=== PATIENT | female | born 1980 | race Caucasian/White ===

== ENCOUNTER 2022-02-23 11:09 | Emergency (ER) | payer BC, SELFPAY ==
--- NOTE | 2022-02-23 11:20 | ED.URI ---
HPI - URI/Sore Throat General Chief Complaint: Upper Respiratory Infection Stated Complaint: sorethroat Time Seen by Provider: 02/23/22 11:34 Source: patient and RN notes reviewed Mode of arrival: ambulatory Limitations: no limitations History of Present Illness HPI Narrative: 41-year-old female presents with concern for sore throat, painful swallowing, swollen glands. Reports 3 days of symptoms that are worsening and not improving. Reports she has been taking Zicam and ibuprofen. She denies shortness of breath, difficulty swallowing, fever, body aches, chills, sweats, cough, nasal congestion, rhinorrhea. Reports she had a headache yesterday. Denies nausea, vomiting, diarrhea. MD elicited complaint: sore throat Related Data Home Medications Medication Instructions Recorded Confirmed bupropion HCl 300 mg PO DAILY 02/23/22 02/23/22 dextroamphetamine-amphetamine 20 mg PO DAILY 02/23/22 02/23/22 lorazepam 0.5 mg PO DIRECTED 02/23/22 02/23/22 norethindrone-e.estradiol-iron 1 tablet PO DAILY 02/23/22 02/23/22 [11/25 (28)] Allergies Allergy/AdvReac Type Severity Reaction Status Date / Time No Known Allergies Allergy Mild Verified 02/23/22 11:38 Review of Systems Review of Systems: CONSTITUTIONAL: Denies malaise, chills, sweats, or fever. EYES: Denies visual changes, redness, or discharge. ENT: Denies rhinorrhea, congestion, sinus pain, otalgia. Reports sore throat. CARDIOVASCULAR: Denies chest pain, palpitations, or edema. RESPIRATORY: Denies cough. Denies dyspnea. GASTROINTESTINAL: Denies abdominal pain, nausea, vomiting, diarrhea SKIN: Denies rash or itching. MUSCULOSKELETAL: Denies myalgia. NEUROLOGIC: Reports headache. All systems reviewed & are unremarkable except as noted in HPI and below PMFSH Comments At time of signature, agree with nursing past medical, surgical, social and family history. There is no relevant family history pertinent to the presenting complaint Exam Narrative: GENERAL: Well-appearing, well-nourished, and in no acute distress. HEAD: Normocephalic EYES: PERRLA, conjunctivae clear ENT: Nares clear. Mucous membranes moist. TM pearly palma with dull light reflex bilaterally; no tragal tenderness. Oropharynx erythematous without lesions. Tonsils enlarged and with exudate. No drooling, no hoarseness, no trismus, uvula midline. NECK: Supple. No lymphadenopathy CHEST: Clear to auscultation, breath sounds equal. No wheezing, rhonchi, rales, or stridor. No respiratory distress, speaks in full sentences. HEART: Regular rate and rhythm. No murmur heard. SKIN: Warm, dry, no rash. NEURO: Alert and oriented x3. PSYCH: Normal mood and affect Course Course Emergency Course: Patient is aware of diagnosis, understands and agrees to treatment plan. Anticipatory guidance given. Patient agrees to follow-up as directed and is aware of reasons to seek care at the emergency department. Portions of this record may have been created with voice recognition software Level of Care: Express Care Visit Vital Signs Vital signs: Reviewed. MDM - URI/Sore Throat MDM Narrative Medical decision making narrative: Differential diagnosis considered: Hernandez virus, strep pharyngitis, allergic rhinitis, upper respiratory tract infection, sinusitis, rhinosinusitis, nasopharyngitis. viral pharyngitis, otitis media, otitis externa, pneumonia, bronchitis, viral cough syndrome, viral syndrome, and influenza. Exam findings show no acute concerns or changes; patient is non-toxic appearing and is in no distress. Patient is appropriate for outpatient treatment and follow-up. Lab Data Attestation: I reviewed the patient's lab results. Critical Care Time Critical Care Time Critical Care Time: No Discharge Plan Discharge Clinical Impression: Acute streptococcal pharyngitis Patient Disposition: Home, Self-Care Condition: Stable Instructions: Antibiotic Form Additional Instructions: -Take the medication as prescr
[2022-02-23 11:26] VITALS: BP 141/94; PULSE 97; RESP 18; TEMP 36.6; O2SAT 100
== END 2022-02-23 11:54 | disposition home or self-care (01) ==
PROVIDERS: Emergency Provider Nurse Practitioner
DX: J02.0 Streptococcal pharyngitis (principal)
CPT/HCPCS: 87880; 99213; G0463

== ENCOUNTER 2023-12-25 23:50 | Emergency (ER) | payer OTHER, MEDICAID, SELFPAY ==
--- NOTE | ~2023-12-25 | CT_ITS ---
Non-contrast Head CT History: Head trauma Technique: Axial non-contrast imaging of the brain was performed. Dose reduction technique was used on this scan by utilizing automated exposure control and iterative reconstruction technique. The dose -length product (DLP) was 605.33 mGy-cm. Findings: There is no evidence of intracranial hemorrhage, mass lesion, or acute infarct. Brain par enchyma appears normal. The ventricles and subarachnoid spaces are normal in size. The calvarium ap pears normal. The visualized paranasal sinuses and mastoid air cells are clear. Impression: No significant abnormality seen. Reviewed, dictated and finalized at [facility]. ORATE RISK ANALYST Impression: No significant abnormality seen.
--- NOTE | ~2023-12-25 | CT_ITS ---
Noncontrast CT scan of the cervical spine Technique: Multiple contiguous axial [address] images of the cervical spine were obtained and rec onstructed in 2D sagittal and coronal planes on the acquisition scanner. Dose reduction technique was used on this scan by utilizing automated exposure control, adjustment of the mA and/or kV according to patient size. The dose-length product (DLP) was 325.34 mGy-cm. Clinical History: Pain Findings: No fractures or dislocations. There are disc osteophyte complexes at C5-C6 and C6-C7, prob able mild canal stenosis at these levels. No prevertebral soft tissue swelling. Impression: No fracture or subluxation of the cervical spine. Reviewed, dictated and finalized at [facility]. HOUSE INSPECTOR Impression: No fracture or subluxation of the cervical spine.
[2023-12-25 23:51] VITALS: PULSE 91; RESP 18
--- NOTE | 2023-12-25 23:53 | ECG_ITS ---
Measurements Intervals [place] Rate: 87 P: 62 [place]: 167 QRS: 29 QRSD: 98 T: 55 QT: 368 QTc: 443 Interpretive Statements SINUS RHYTHM POSSIBLE LEFT ATRIAL ENLARGEMENT [-0.1mV P WAVE IN V1/V2] NO PREVIOUS ECG AVAILABLE FOR COMPARISON Electronically Signed On 12-26-2023 15:22:32 GASFITTER by Chema Marquez M.D.
--- NOTE | 2023-12-25 23:53 | ED.ALCOHOL ---
HPI - Alcohol General Chief Complaint: Alcohol <Coleman Adams MD - Last Filed: 12/27/23 07:20> Stated Complaint: od, <Coleman Adams MD - Last Filed: 12/27/23 07:20> Time Seen by Provider: 12/25/23 23:52 <Coleman Adams MD - Last Filed: 12/27/23 07:20> History of Present Illness HPI narrative: 43-year-old female presenting to the emergency department for evaluation for suspected accidental overdose. Patient did have alcohol with dinner and did take some Ativan at home, boyfriend's inspection she took 3-5 Ativan but is unsure. Patient was talking to her boyfriend when she fell to the ground and then became unresponsive. patient does have a hematoma lateral to her right eye. when EMS arrived to the scene they report the patient was minimally responsive. Upon arrival to the emergency department patient is more alert. Patient is able to answer some questions and is protecting her airway. Patient denied any suicidal intent. Patient did have a daughter who approximately 2 years ago due to a trauma. <Coleman Adams MD - Last Filed: 12/27/23 07:20> Related Data Home Medications: Home Medications Medication Instructions Recorded Confirmed bupropion HCl 150 mg 24 hr tablet, 300 mg PO DAILY 02/23/22 02/23/22 extended release dextroamphetamine-amphetamine ER 20 mg PO DAILY 02/23/22 02/23/22 20 mg 24hr capsule,extend release lorazepam 0.5 mg tablet 0.5 mg PO DIRECTED 02/23/22 02/23/22 norethindrone 1 mg-ethinyl 1 tablet PO DAILY 02/23/22 02/23/22 estradiol 20 mcg (21)-iron 75 mg (7) tablet (11/25 (28)) <Coleman Adams MD - Last Filed: 12/27/23 07:20> Allergies/Adverse Reactions: Allergies Allergy/AdvReac Type Severity Reaction Status Date / Time No Known Allergies Allergy Mild Verified 02/23/22 11:38 <Coleman Adams MD - Last Filed: 12/27/23 07:20> Review of Systems Review of Systems: All systems reviewed & are unremarkable except as noted in HPI and below <Coleman Adams MD - Last Filed: 12/27/23 07:20> Exam Narrative: APPEARANCE: Intoxicated but well-appearing HEAD: normocephalic, atraumatic. EYES: PERRLA/EOMI, conjunctivae clear. NOSE: Normal no drainage EARS:TMS clear with good light reflex. THROAT: Pharynx clear, no exudate. NECK: Supple. No adenopathy, no masses. RESPIRATORY: Airway patent, respirations nonlabored. Clear to auscultation bilaterally, no rales, rhonchi, wheezing. CARDIOVASCULAR: Regular rate and rhythm without murmurs rubs or gallops. ABDOMINAL: Soft, nontender, nondistended, normal bowel sounds MUSCULOSKELETAL: Moves all extremities. Strength/ROM intact, No edema, No calf tenderness. NEURO: Alert. Cranial nerves II through XII intact. Good gait. Good coordination SKIN: contusion to right eyebrow <Coleman Adams MD - Last Filed: 12/27/23 07:20> Course Course Emergency Course: 43-year-old female present to the emergency department for evaluation of alcohol intoxication. Patient denied having any homicidal or suicidal ideation. At time of sign-out patient disposition is pending sobriety. <Coleman Adams MD - Last Filed: 12/27/23 07:20> Reevaluation(s) Reevaluation #1: I assumed care of this patient at shift change with pending disposition. I have re-examined the patient. Family is at the bedside. She feels comfortable going home. She is not suicidal or homicidal. Family stated that they will be with her today. <Eddie Chou MD - Last Filed: 12/26/23 08:53> Vital Signs Vital signs: Vital Signs Pulse Rate 91 12/25/23 23:51 Respiratory Rate 18 12/25/23 23:51 Oxygen Delivery Room Air 12/25/23 23:51 Temperature 97.5 F L 12/26/23 07:41 Pulse Rate 78 12/26/23 07:41 Respiratory Rate 18 12/26/23 07:41 Blood Pressure 125/77 12/26/23 07:41 Pulse Oximetry 98 12/26/23 07:41 Oxygen Delivery Room Air 12/25/23 23:51 <Coleman Venegas
[2023-12-26] VITALS (26 sets, daily range): BP systolic 116–135; BP diastolic 71–93; PULSE 78–112; RESP 17–23; TEMP 36.4–36.9; O2SAT 96–99
[2023-12-26 00:08] LABS: Basophils Absolute Auto 0.1 K/mm3 (0.0-0.1); Basophils Percent Auto 1.1 % (0.2-1.2); Eosinophils Absolute Auto 0.3 K/mm3 (0-0.3); Eosinophils Percent Auto 4.6 % (0-4.4); Hemoglobin 13.6 g/dL (12.0-15.0); Immature Granulocyte Absolute 0.02 K/mm3 (0.00-0.031); Immature Granulocyte Percent A 0.3 % (0-0.5); Mean Corpuscular HGB Conc 32.4 g/dl (32-36); Mean Corpuscular Hemoglobin 30.3 pg (26-34); Mean Corpuscular Volume 93.5 fl (80-100); Monocytes Absolute Auto 0.4 K/mm3 (0.1-0.6); Monocytes Percent Auto 6.8 % (2.6-8.5); Neutrophils Absolute Auto 3.1 K/mm3 (1.3-6.7); Neutrophils Percent Auto 47.2 % (45.5-73.1); Platelet Count Result 358 k/mm3 (150-375); Red Blood Count 4.49 M/mm3 (4.2-5.4); Red Cell Distribution Width 12.6 % (11.5-14.5); White Blood Count 6.5 K/mm3 (4.5-10.0)
[2023-12-26 00:18] LABS: Ethanol 197 mg/dL (<10)
[2023-12-26 00:22] LABS: Alanine Aminotransferase 19 U/L (6-35); Albumin Level 4.4 g/dL (3.5-5.1); Alkaline Phosphatase 56 U/L (38-126); Anion Gap 7 mmol/L (8-16); Aspartate Amino Transferase 34 U/L (14-36); Bilirubin,Total 0.4 mg/dL (0.2-1.3); Blood Urea Nitrogen 7 mg/dL (7-17); Calcium 8.7 mg/dL (8.4-10.2); Carbon Dioxide 26 mmol/L (22-30); Chloride 108 mmol/L (98-107); Estimated Glomerular Filt Rate > 60; Glucose 94 mg/dL (65-110); Potassium 3.3 mmol/L (3.4-5.0); Sodium 141 mmol/L (137-145)
[2023-12-26 00:25] LABS: Acetaminophen < 10 ug/mL (10-30); Salicylate < 1.0 mg/dL (2-20)
[2023-12-26] MEDS: SODIUM CHLORIDE 0.9% IV 1,000 ML 999 ML IV CONT (01:41)
[2023-12-26 01:48] LABS: Free T4 Free Thyroxine Reflex 0.94 ng/dL (0.78-2.19)
[2023-12-26 01:58] LABS: Appearance Urine Clear (Clear); Bilirubin Urine Negative (Negative); Blood Urine Negative (Negative); Color Urine Yellow (Yellow); Glucose Urine UA Negative (Negative); Ketones Urine Negative (Negative); Leukocyte Esterase Ur Negative LEU/UL (Negative); Nitrate Urine Negative (Negative); Protein Urine Negative (Negative); Specific Grav Ur 1.005 (1.001-1.035); Urobilinogen Urine 0.2 mg/dL (<2.0)
[2023-12-26 02:02] LABS: Add Urine Microscopic? NO
[2023-12-26 02:03] LABS: Influenza A QL RT-PCR Negative (Negative); Influenza B QL RT-PCR Negative (Negative); RSV RNA, RT-PCR Negative (Negative); SARS-CoV-2 RNA PCR Negative (Negative)
--- NOTE | 2023-12-26 02:04 | PC.NURSE ---
Went in to straight cath pt. Pt started urinating. Able to catch urine in cup midstream. Pt and linens changed. Pure wick placed. Family at bedside updated.
[2023-12-26 02:12] LABS: Amphetamine Screen Urine Positive (Negative); Barbiturate Screen Urine Negative (Negative); Benzodiazepines Screen Urine Negative (Negative); Cannabinoid Screen Urine Negative (Negative); Cocaine Screen Urine Negative (Negative); Methadone Screen Urine Negative (Negative); Opiate Screen Urine Negative (Negative); Phencyclidine Screen Urine Negative (Negative)
[2023-12-26 03:49] LABS: Total Triiodothyronine (T3) 1.35 NG/ML (0.97-1.69)
--- NOTE | 2023-12-26 07:18 | PC.NURSE ---
Report to [facility]. Mother remains in room. VSS. Remains sleeping. Resp even and nonlabored.
--- NOTE | 2023-12-26 07:42 | PC.NURSE ---
Assumed care of pt. Pt responds to name, requesting ice chips. States she drank margiritas at restaurant last night, once she got home took Lorazepam. Unsure dosage & how many tablets taken. Denies S/I
--- NOTE | 2023-12-26 08:25 | PC.NURSE ---
RN noted pt right bruised with edema to right orbit & right side of face
--- NOTE | 2023-12-26 08:35 | PC.NURSE ---
Pt & family informed of surgical consult for appendectomy. All voice understanding.
--- NOTE | 2023-12-26 08:43 | PC.NURSE ---
Pt awake conversing with family at bedside. Pt states feels ready to go home. Mother states she will be with pt the entire day. Pt ambulated with stand by assist.
== END 2023-12-26 09:25 | disposition home or self-care (01) ==
PROVIDERS: Emergency Provider Emergency Medicine
DX: F10.129 Alcohol abuse with intoxication, unspecified (principal); Y90.6 Blood alcohol level of 120-199 mg/100 ml; S00.11XA Contusion of right eyelid and periocular area, initial encounter; Z11.52 Encounter for screening for COVID-19; R94.31 Abnormal electrocardiogram [ECG] [EKG]; Z79.899 Other long term (current) drug therapy; W18.39XA Other fall on same level, initial encounter
CPT/HCPCS: 36415; 70450; 72125; 80053; 80307; 81003; 81025; 84439; 84443; 84480; 85025; 87637; 93005; 96360; 99284; J7030